=== PATIENT | female | born 1970 | race Caucasian/White ===

== ENCOUNTER 2016-09-30 12:56 | Outpatient (CLI) | payer OTHER ==
[~2016-09-30] VITALS: Ht 167.6 cm; Wt 86.8 kg
[~2016-09-30 12:56] MED LIST: ADVIL200 MG PO; CLARITIN 1010 MG/TAB PO; FLONASEALLERGY NS; LIPITOR 10MG10 MG PO; NICODERM C21 MG/PATC TD; NORVASC 5MG5 MG/TAB PO; PLAVIX 75MG TAB75 MG PO; ZYRTEC 10MG10 MG PO
[2016-09-30 14:18] VITALS: BP 122/65; PULSE 78; TEMP 98.5
[2016-09-30 17:25] VITALS: BP 116/77; PULSE 82; TEMP 97.8
== END 2016-09-30 17:31 | disposition home or self-care (01) ==
LOC: COL.RAD 12:56
DX: R00.2 Palpitations (principal)
CPT/HCPCS: 27124; C1764